=== PATIENT | male | born 1975 | race Two or more races ===

== ENCOUNTER 2017-01-25 10:53 | Emergency (ER) | payer SELFPAY ==
[~2017-01-25] VITALS: Ht 167.6 cm; Wt 99.1 kg
[2017-01-25 11:27] VITALS: BP 128/82
== END 2017-01-25 12:27 | disposition home or self-care (01) ==
LOC: ED 12:13
DX: S20.212A Contusion of left front wall of thorax, initial encounter (principal); R07.89 Other chest pain; W01.0XXA Fall on same level from slipping, tripping and stumbling without subsequent striking against object, initial encounter; Y93.89 Activity, other specified; Y99.8 Other external cause status; Y92.89 Other specified places as the place of occurrence of the external cause
CPT/HCPCS: 99284